=== PATIENT | female | born 1990 | race Caucasian/White ===

== ENCOUNTER 2018-02-10 15:44 | Emergency (ER) | payer BC ==
[2018-02-10 19:05] LABS: URINE BLOOD (Dip) POC Negative (NEGATIVE); URINE GLUCOSE (Dip) POC Negative (NEGATIVE); URINE KETONES (Dip) POC Trace (NEGATIVE); URINE LEUKOCYTE EST (Dip) POC Negative (NEGATIVE); URINE NITRITE (Dip) POC Negative (NEGATIVE); URINE TOTAL PROTEIN POC Trace (NEGATIVE)
[2018-02-10 19:05] LABS: URINE PH (Dip) POC 6.5 (5.0-8.5)
[2018-02-10] MEDS: KETOROLAC 60 MG INJ IM (19:07)
== END 2018-02-10 19:36 | disposition home or self-care (01) ==
LOC: FTE 15:44
DX: N75.0 Cyst of Bartholin's gland (principal)
CPT/HCPCS: 81003; 81025; 96372; 99284-25

== ENCOUNTER 2018-04-20 09:03 | Emergency (ER) | payer BC ==
[2018-04-20] MEDS: HYDROCODONE/APAP (10/325) TAB PO (10:34)
[2018-04-20] MEDS: LIDOCAINE 1% (MDV) 10 ML INJ INJ (11:03)
== END 2018-04-20 11:31 | disposition home or self-care (01) ==
LOC: FTE 09:03
DX: N75.1 Abscess of Bartholin's gland (principal)
CPT/HCPCS: 56420; 99283-25

== ENCOUNTER 2018-04-28 09:22 | Emergency (ER) | payer BC | END 2018-04-28 10:15 | disposition home or self-care (01) | LOC: FTE 09:22 | DX: N75.1 Abscess of Bartholin's gland (principal) | CPT/HCPCS: 99281 ==